=== PATIENT | male | born 1965 | race African-American/Black ===

== ENCOUNTER 2019-05-12 02:21 | Emergency (ER) | payer MEDICARE ==
[~2019-05-12] VITALS: Ht 185.4 cm; Wt 113.4 kg
[2019-05-12] MEDS ORDERED: DIVA250T4 PO (02:30)
--- NOTE | 2019-05-12 02:35 | NUR ---
Patient ambulated with stable gait. Speech clear, speaks in complete sentences. A/Ox4. No neuro deficits noted. Patient came for c/o headache x 6 days. Respiratory even and unlabored, no cough no sob. No cardiovascular distress noted, all pulses palpable. No GI/ distress, denies any n/v/d Patient in bed at lowest position, sr upx2, call light within reach. Fall precautions implemented per protocol.
[2019-05-12] MEDS ORDERED: IBUPROFEN 400 MG TABLET ONE (02:56)
[2019-05-12] MEDS ORDERED: IBUPROFEN 400 MG TABLET PO ONE (03:00)
--- NOTE | 2019-05-12 03:05 | NUR ---
Patient given written and verbal discharge instructions. Patient verbalizes understanding of instructions. Patient is ambulatory with stable gait. Refuses offer of [facility] placement. Patient given list of available shelters in surrounding area.
== END 2019-05-12 03:07 | disposition home or self-care (01) ==
LOC: ER 02:23
DX: F31.9 Bipolar disorder, unspecified (principal); R51 Headache; I10 Essential (primary) hypertension; Z79.899 Other long term (current) drug therapy
CPT/HCPCS: A4663

== ENCOUNTER 2019-05-21 00:34 | Emergency (ER) | payer MEDICARE, OTHER ==
[~2019-05-21] VITALS: Ht 185.4 cm; Wt 113.4 kg
[~2019-05-21 00:34] MED LIST: DIVA250T4 PO
--- NOTE | 2019-05-21 00:45 | NUR ---
Patient ambulated with stable gait. A/Ox4. No neuro deficits. Patient came for c/o migraine headaches x7 hours [employer]. Respiratory even and unlabored, no cough no sob. No cardiovascular distress noted. Denies any n/v or sensitivity to light.
[2019-05-21] MEDS ORDERED: ONDANSETRON ODT 4 MG TAB.RAPDIS SL ONE (01:15)
[2019-05-21] MEDS ORDERED: OXYCODONE/APAP 5-325 MG TABLET PO ONE (01:15)
[2019-05-21] MEDS ORDERED: ONDANSETRON ODT 4 MG TAB.RAPDIS ONE (01:25)
[2019-05-21] MEDS ORDERED: OXYCODONE/APAP 5-325 MG TABLET ONE (01:25)
--- NOTE | 2019-05-21 01:34 | NUR ---
Patient discharged to home in stable conditon. Written and verbal after care instructions given. Patient verbalizes understanding of instructions. Patient ambulated with stable gait.
--- NOTE | 2019-05-21 01:34 | NUR ---
Patient denies any homelessness.
[2019-05-21 01:37] VITALS: BP 146/72
== END 2019-05-21 01:37 | disposition home or self-care (01) ==
LOC: ER 00:40
DX: G89.29 Other chronic pain (principal); R51 Headache; F31.9 Bipolar disorder, unspecified; Z79.899 Other long term (current) drug therapy
CPT/HCPCS: A4663; Q0162